=== PATIENT | male | born 1970 | race Hispanic/Latino ===

== ENCOUNTER 2023-02-20 12:04 | Emergency (ER) | payer BC ==
[~2023-02-20] VITALS: Ht 180.3 cm; Wt 102.1 kg
[2023-02-20 13:37] LABS: BASOPHILS % (AUTO) 0.9 % (0.0-5.0); EOSINOPHILS % (AUTO) 3.6 % (0.0-8.0); HEMATOCRIT 21.3 % (42-54); LYMPHOCYTES % (AUTO) 24.8 % (21.0-51.0); MEAN CORPUSCULAR HEMOGLOBIN 28.7 pg (27.0-33.0); MEAN CORPUSCULAR HGB CONC 31.9 g/dL (32.0-36.0); MEAN CORPUSCULAR VOLUME 89.9 fL (79-99); MONOCYTES % (AUTO) 8.9 % (3.0-13.0); NEUTROPHILS % (AUTO) 61.4 % (40.0-77.0); PLATELET COUNT (AUTO) 316 K/uL (130-400); RED BLOOD CELL COUNT(AUTO) 2.37 MIL/uL (4.50-6.20); RED CELL DISTRIBUTION WIDTH 14.9 % (11.0-15.5); WHITE BLOOD COUNT (AUTO) 8.5 K/uL (4.8-10.8)
[2023-02-20 13:50] LABS: ALBUMIN 2.9 g/dL (3.5-5.0); POTASSIUM 4.3 mmol/L (3.5-5.1)
[2023-02-20 13:52] LABS: CREATININE 9.3 mg/dL (0.5-1.5)
[2023-02-20] MEDS ORDERED: ACETAMINOPHEN 325 MG TAB PO PRN ×2 (15:30)
[2023-02-20] MEDS ORDERED: ONDANSETRON ODT 4MG TAB SL PRN (15:30)
[2023-02-20] MEDS: HEPARIN 5,000 UNIT VIAL SQ SCH ×2 (16:16→23:19)
[2023-02-20] MEDS: INSULIN HUMULIN R 100 UNIT/ML 3ML SQ SCH ×2 (16:25→21:00)
[2023-02-20 16:35] LABS: APPEARANCE,URINE CLEAR (CLEAR); BILIRUBIN,URINE NEGATIVE (NEGATIVE); COLOR,URINE LIGHT-YELLOW (YELLOW); GLUCOSE, URINE (UA) NEGATIVE (NEGATIVE); KETONES,URINE NEGATIVE (NEGATIVE); LEUKOCYTE ESTERASE ,URINE NEGATIVE Leu/uL (NEGATIVE); NITRATE,URINE NEGATIVE (NEGATIVE); OCCULT BLOOD,URINE MODERATE (NEGATIVE); PH,URINE 5.5 (5.0-8.0); PROTEIN,URINE 300 mg/dL (NEGATIVE); UROBILINOGEN,URINE 0.2 mg/dL (0.2-1.0)
[2023-02-20 16:42] LABS: BACTERIA,URINE RARE /HPF (None Seen); MUCUS,URINE RARE LPF (None Seen)
[2023-02-20] MEDS ORDERED: METOPROLOL TARTRATE 50 MG TAB PO SCH (18:30)
[2023-02-20 21:01] LABS: % IRON SATURATION 16.3 % (30-44)
[2023-02-20 23:00] VITALS: BP 169/87
[2023-02-21] MEDS ORDERED: AMLODIPINE 5 MG TAB PO SCH (09:00)
== END 2023-02-21 01:21 | disposition short-term general hospital (02) ==
LOC: EDH 12:04
DX: D64.9 Anemia, unspecified (principal); I12.9 Hypertensive chronic kidney disease with stage 1 through stage 4 chronic kidney disease, or unspecified chronic kidney disease; E11.22 Type 2 diabetes mellitus with diabetic chronic kidney disease; N18.9 Chronic kidney disease, unspecified; E78.00 Pure hypercholesterolemia, unspecified
CPT/HCPCS: 99285; 76770; 71045; 83540; 83550; 84100; 84484; 80053; 83880; 82728; 85025; 86850; 86900; 86901; 82948 ×2; 81001; 36415; 93005; J1644